=== PATIENT | male | born 1930 | race Caucasian/White ===

== ENCOUNTER 2019-08-28 12:23 | Observation (INO) ==
[2019-08-28 15:09] LABS: Basophils % 0.6 % (0.0-0.8); Eosinophils # 0.4 10*3/uL (0.0-0.87); Eosinophils % 6.3 % (0.00-10.9); Hematocrit 43.7 VOL% (42.0-52.0); Hemoglobin 14.2 GM/DL (14.0-18.0); Immature Granulocytes % 0.5 %; Immature Granulocytes Absolute 0.03 #; Lymphocytes # 0.7 10*3/uL (1.4-4.0); Lymphocytes % 11.4 % (21.2-54.2); Mean Corpuscular HGB Conc 32.5 GM/DL (32-36); Mean Corpuscular Volume 96.9 FL (87-102); Mean Platelet Volume 10.8 FL (9.6-12.0); Monocytes % 8.4 % (1.7-12.7); Neutrophils % 72.8 % (38.7-73.9); Platelet Count 189 T/CUMM (130-400); Red Blood Count 4.51 MC/CUMM (3.8-5.5); Red Cell Distribution Width 13.2 % (9.3-17.3); White Blood Count 6.3 T/CUMM (4-12)
[2019-08-28 15:21] LABS: PT Patient Result 10.8 SECS (9.8-11.9); Partial Thromboplastin Time 31.9 SECS (23.9-33.8)
[2019-08-28 15:36] LABS: Alanine Aminotransferase 24 U/L (16-61); Albumin 3.3 G/DL (3.4-5.0); Alkaline Phosphatase 93 U/L (45-117); Aspartate Amino Transferase 16 U/L (0-37); Bilirubin,Total < 0.39 MG/DL (0.2-1.0); Blood Urea Nitrogen 38 MG/DL (7-18); Estimated Glom Filtration Rate 36 ML/MIN; Ferritin 95.8 ng/ml (26-388); Free T4 (Free Thyroxine) 1.21 NG/DL (0.76-1.46); Glucose 119 MG/DL (74-106); Osmolality,Calculated 286.5 MOS/KG (273-304); Total Protein 6.2 G/DL (6.4-8.3); Troponin I < 0.015 NG/ML (0.00-0.045)
[2019-08-28] MEDS ORDERED: ACETAMINOPHEN 325 MG TABLET PO PRN (16:07)
[2019-08-28] MEDS ORDERED: ONDANSETRON 4 MG/2 ML VIAL IV PRN (16:07)
[2019-08-28] MEDS ORDERED: DEXTROSE 50% 25 GM/50 ML VIAL IV PRN (16:16)
[2019-08-28] MEDS ORDERED: GLUCAGON 1 MG VIAL IM PRN (16:16)
[2019-08-28] MEDS: DEXTROSE 5% NACL 0.45% 1,000 ML IV SCH (16:45)
[2019-08-28 18:54] LABS: Apearance,Urine CLEAR (Clear); Bilirubin,Urine Negative (Negative); Blood, Urine Negative (Negative); Glucose,Urine (UA) Negative (Negative); Ketones,Urine Negative (Negative); Mucus,Urine Occasional /LPF (Occasional); Nitrite,Urine Negative (Negative); Protein,Urine Negative; RBC,Urine 3 /HPF (0-4); Squamous Epithelial Cell,Urine Occasional /HPF (0-10); Urine Color Yellow (Yellow); Urine Specific Gravity 1.021 (1.001-1.035); Urine Urobilinogen < 2.0 EU/DL (0.2-1.0); WBC,Urine 2 /HPF (0-6)
[2019-08-28 20:02] LABS: Barbiturates Screen,Urine Negative (Negative); Benzodiazepines Screen,Urine Negative (Negative); Cannabinoid Screen,Urine Negative (Negative); Opiate Screen,Urine Negative (Negative); Phencyclidine Screen,Urine Negative (Negative)
[2019-08-28] MEDS: INSULIN REGULAR 100 UNIT/ML SUBCUT SCH (21:56)
[2019-08-28] MEDS: cephALEXin 500 MG CAPSULE PO SCH (21:56)
[2019-08-29] MEDS: DEXTROSE 5% NACL 0.45% 1,000 ML IV SCH ×2 (01:13→11:36)
[2019-08-29 08:18] LABS: Basophils % 0.6 % (0.0-0.8); Eosinophils # 0.3 10*3/uL (0.0-0.87); Eosinophils % 4.5 % (0.00-10.9); Hematocrit 40.6 VOL% (42.0-52.0); Hemoglobin 13.8 GM/DL (14.0-18.0); Immature Granulocytes % 0.5 %; Immature Granulocytes Absolute 0.03 #; Lymphocytes # 0.9 10*3/uL (1.4-4.0); Lymphocytes % 13.6 % (21.2-54.2); Mean Corpuscular Volume 92.5 FL (87-102); Mean Platelet Volume 11.3 FL (9.6-12.0); Monocytes % 7.3 % (1.7-12.7); Neutrophils % 73.5 % (38.7-73.9); Platelet Count 172 T/CUMM (130-400); Red Blood Count 4.39 MC/CUMM (3.8-5.5); Red Cell Distribution Width 12.9 % (9.3-17.3); White Blood Count 6.6 T/CUMM (4-12)
[2019-08-29 08:54] LABS: Calcium 8.3 MG/DL (8.5-10.1); Osmolality,Calculated 284.7 MOS/KG (273-304); Risk Ratio 2.83; Thyroid Stimulating Hormone 1.82 uIU/ml (0.358-3.74); VLDL CHOLESTEROL 24.6 MG/DL
[2019-08-29] MEDS: cephALEXin 500 MG CAPSULE PO SCH (08:56)
[2019-08-29] MEDS: INSULIN REGULAR 100 UNIT/ML SUBCUT SCH ×3 (08:56→12:16)
[2019-08-29] MEDS ORDERED: MAGNESIUM SULF RIDER 2 GM in PREMIX 1 EACH IV ONE (09:56)
[2019-08-29] MEDS ORDERED: MAGNESIUM CHLORIDE 64 MG TABLET PO SCH (10:00)
[2019-08-29 12:51] VITALS: BP 134/64
== END 2019-08-29 14:11 | disposition home health service (06) ==
LOC: N.ED 12:23 → N.EDINP 12:23 → N.3E 17:14
PROVIDERS: ADMIT Internal Medicine; ATTEND Internal Medicine